=== PATIENT | female | born 1975 | race Caucasian/White ===

== ENCOUNTER → 2024-08-19 | Outpatient (CLI) | payer OTHER, SELFPAY ==
--- NOTE | 2024-08-19 13:15 | MRI_ITS ---
EXAM: PELVIS W/WO CONTRAST 08/19/2024 CLINICAL HISTORY: MULTIPLE FIBROIDS. TECHNIQUE: MRI of the pelvis was performed. Multiplanar and multisequence images were obtained 1st without and then with intravenous gadolinium contrast. CONTRAST: Clariscan VOLUME: 19 mL FINDINGS: Multiple fibroids re-identified. 1 which is likely. Location is submucosal, pedunculated 2.7 cm ovoid mass in the endometrial potential space. The uterus measures 9.7 cm length by 5.9 cm AP by 6.4 cm T. A few other isointense fibroids are seen in intramural location. Incidentally noted are several nabothian cysts in the cervix. All of the fibroids demonstrate isointense signal on postcontrast imaging and are less visible the postcontrast images. No abnormal enhancement. MRI/Pelvis W/WO Contrast IMPRESSION: Pedunculated, submucosal fibroid is seen occupying the potential space of the e ndometrial cavity. Reading [facility]
== END | disposition home or self-care (01) ==
PROVIDERS: PCP Nurse Practitioner Family; Referring Provider Nurse Practitioner Family; Visit Provider Nurse Practitioner Family
DX: D25.0 Submucous leiomyoma of uterus (principal)
CPT/HCPCS: 72197; A9575

== ENCOUNTER → 2024-09-05 | Outpatient (CLI) | payer OTHER, SELFPAY ==
--- NOTE | 2024-09-05 10:45 | EMB_PTH ---
PATIENT: STANFORD FRIAS LOC: [facility] #:[id number] AGE/SX: 49/F ROOM: RE09/05/[address]: Dr. Sophy Arechiga DO : 1975 BED: DIS: 09/05/2024 SPEC #: [id number] RECD: 09/05/24 17:10 STATUS: MAYTE LIZETTE #: [id number] GERRY: 09/05/24 10:[address]: Sophy Arechiga DEPT: SURGICAL PATHOLOGY RECD BY: Zack Osorio ENTERED: 09/06/24 09:39 SP TYPE: ENDOM BX/C KATIE DR: Emeli David, COMPLIANCE REVIEWER-C Tissues: A - Endometrium, NOS Procedures: Surgery Specimen Level IV HEADER OPERATION: Endometrial biopsy PRE-OP DIAGNOSIS: Abnormal uterine bleeding TISSUE SUBMITTED: A- Endometrial lining MICROSCOPIC DIAGNOSIS A. Endometrium, lining, biopsy: * Proliferative endometrium MICROSCOPIC DESCRIPTION Slides are reviewed. GROSS DESCRIPTION A. Received in formalin labeled with the patient's name and date of is a 1.1 x 1.0 x 0.2 cm aggregate of dark red tissue fragments and mucoid material. Entirely submitted in 1 cassette. VT 09/06/2024 CPT:11144
== END | disposition home or self-care (01) ==
LOC: LABSPEC 16:42
PROVIDERS: PCP Nurse Practitioner Family; Referring Provider Obstetrics & Gynecology; Visit Provider Obstetrics & Gynecology
DX: Z12.4 Encounter for screening for malignant neoplasm of cervix (principal); N93.9 Abnormal uterine and vaginal bleeding, unspecified
CPT/HCPCS: 87624; 88175; 88305; G0145